=== PATIENT | female | born 1985 | race Caucasian/White ===

== ENCOUNTER 2019-06-15 20:01 | Emergency (ER) | payer OTHER ==
--- NOTE | 2019-06-15 20:11 | ER Document Report ---
ED Medical Screen (RME) - General Chief Complaint: Chest Pain Stated Complaint: RAPID HEART BEAT Time Seen by Provider: 06/15/19 20:09 Primary Care Provider: IVETH LARES [Primary Care Provider] - Follow up as needed Information source: Patient Cannot obtain history due to: Other - This is a 34-year-old female presented to the emergency room today stating that she had palpitations ongoing for about 2 days. She has had this 3 or 4 times in the past was evaluated and had always resolved by the time she got to the emergency room was not visible on EKG. She does have a familial history of atrial tachycardia as well as proximal atrial fibrillation onset between 31 and 36 in her her parent. Physical Exam - Cardiovascular Rhythm: Regular Heart sounds: Normal auscultation Murmur: No Doctor's Discharge - Discharge Referrals: IVETH LARES [Primary Care Provider] - Follow up as needed
[2019-06-15 20:40] LABS: ABSOLUTE BASOPHILS # (AUTO) 0.1 10^3/uL (0.0-0.2); ABSOLUTE LYMPHOCYTES (AUTO) 3.2 10^3/uL (0.5-4.7); ABSOLUTE MONOCYTES (AUTO) 0.5 10^3/uL (0.1-1.4); ABSOLUTE NEUT (AUTO) 7.8 10^3/uL (1.7-8.2); BASOPHILS % (AUTO) 0.5 % (0-2); EOSINOPHILS % (AUTO) 0.3 % (0-6); HEMATOCRIT 39.7 % (36.0-47.0); HEMOGLOBIN 14.5 g/dL (12.0-15.5); LYMPHOCYTES % (AUTO) 27.2 % (13-45); MEAN CORPUSCULAR HEMOGLOBIN 32.9 pg (27.0-33.4); MEAN CORPUSCULAR HGB CONC 36.5 g/dL (32.0-36.0); MEAN CORPUSCULAR VOLUME 90 fl (80-97); MONOCYTES % (AUTO) 4.4 % (3-13); PLATELET COUNT 284 10^3/uL (150-450); RED BLOOD COUNT 4.41 10^6/uL (3.72-5.28); RED CELL DISTRIBUTION WIDTH 12.9 % (11.5-14.0); SEGMENTED NEUTROPHILS % (AUTO) 67.6 % (42-78); TOTAL CELLS COUNTED % (AUTO) 100 %; WHITE BLOOD COUNT 11.6 10^3/uL (4.0-10.5)
--- NOTE | 2019-06-15 20:51 | RADIOLOGY REPORT (SQ) ---
EXAM DESCRIPTION: PA and lateral radiographs of the chest. CLINICAL HISTORY: 34 years Female, pain COMPARISON: None. FINDINGS: Lungs: Lungs are clear. No pneumonia or edema. No pneumothorax or pleural effusion. Mediastinum: Cardiac and mediastinal silhouette are normal. Bones: Osseous structures are normal. IMPRESSION: Unremarkable radiographs of the chest
[2019-06-15 20:54] LABS: ALBUMIN 4.5 g/dL (3.5-5.0); ALKALINE PHOSPHATASE 100 U/L (38-126); ANION GAP 11 (5-19); ASPARTATE AMINO TRANSFERASE 32 U/L (14-36); BILIRUBIN,DIRECT 0.3 mg/dL (0.0-0.4); BILIRUBIN,TOTAL 0.4 mg/dL (0.2-1.3); BLOOD UREA NITROGEN 21 mg/dL (7-20); CALCIUM 9.5 mg/dL (8.4-10.2); CARBON DIOXIDE 26 mmol/L (22-30); CHLORIDE 103 mmol/L (98-107); CREATINE KINASE 161 U/L (30-135); GLUCOSE 86 mg/dL (75-110); POTASSIUM 3.8 mmol/L (3.6-5.0); TOTAL PROTEIN 7.8 g/dL (6.3-8.2)
[2019-06-15 21:06] LABS: CREATINE KINASE MB 1.68 ng/mL (<4.55); TROPONIN I 0.025 ng/mL
[2019-06-15] MEDS ORDERED: NORMAL SALINE 1000 ML 1,000 ML IV ONE (21:06)
[2019-06-15 21:21] LABS: INTERNATIONAL RATION (INR) 0.98
--- NOTE | 2019-06-15 21:50 | ER Document Report ---
ED Cardiac - General Chief Complaint: Palpitations Stated Complaint: RAPID HEART BEAT Time Seen by Provider: 06/15/19 20:09 Primary Care Provider: DARLENE GARCIA MD [ACTIVE STAFF] - Follow up as needed HE[facility],EMPLOYEE [ACTIVE STAFF] - Follow up as needed ED PISANO MD [ACTIVE STAFF] - Follow up as needed Mode of Arrival: Ambulatory Information source: Patient Notes: Patient states that she has had palpitations over the past 2 days. Patient states that she will feel as though she has a fluttering in her chest and then she will cough and the fluttering goes away. Patient states that the whole episode lasted just a few seconds and then is gone. Patient states that she has had over 15 episodes today. Patient denies any cough or cold symptoms otherw ise. Patient states when she has a fluttering she gets a mild shortness of breath but that resolves as soon as she coughs. 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 Patient denies any known history of DVT or PE. Patient denies any recent long distance travel. Patient is non-smoker. - HPI Patient complains to provider of: Palpitations, Shortness of breath Quality of pain: None Cardiac risk factors: denies: Diabetes, Hypertension, Smoker, Hx MD Associated symptoms: Shortness of breath. 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 denies: Fever EENT: No symptoms reported Cardiovascular: Palpitations. denies: Chest pain Respiratory: Short of breath. denies: Cough Gastrointestinal: No symptoms reported. denies: Nausea, Vomiting Genitourinary: No symptoms reported Female Genitourinary: No symptoms reported Musculoskeletal: No symptoms reported. denies: Back pain, Leg swelling Skin: No symptoms reported Hematologic/Lymphatic: No symptoms reported Neurological/Psychological: No symptoms reported Physical Exam - Vital signs Vitals: Pulse Ox 99 06/15/19 20:09 - General General appearance: Appears well, Alert In distress: None - HEENT Head: Normocephalic, Atraumatic Eyes: Normal Conjunctiva: Normal Nasal: Normal Mouth/Lips: Normal Neck: Normal, Supple. No: Lymphadenopathy - Respiratory Respiratory status: No respiratory distress Chest status: Nontender Breath sounds: Normal Chest palpation: Normal - Cardiovascular Rhythm: Regular. No: Tachycardia Heart sounds: S1 appreciated, S2 appreciated - Abdominal Inspection: Normal Tenderness: Nontender - Back Back: Normal, Nontender - Extremities General upper extremity: Normal inspection, Normal ROM General lower extremity: Normal inspection, Normal ROM - Neurological Neuro grossly intact: Yes Cognition: Normal Mark Coma Scale Eye Opening: Spontaneous Mark Coma Scale Verbal: Oriented Mark Coma Scale Motor: Obeys Commands [place] Coma Scale Total: 15 - Psychological Associated symptoms: Normal affect, Normal mood - Skin Skin Temperature: Warm Skin Moisture: Dry Skin Color: Normal Course - Re-evaluation Re-evalutation: 06/15/19 23:[address] Roger regarding patient presentation and diagnostic evaluation. Recommends adding on magnesium. 06/15/19 23:58 Presentation of chest palpitations in an otherwise well appearing patient. Low clinical suspicion for ACS given clinical history, exam, EKG without ST el evations or depressions, and negative initial troponin. HEART score less than or equal to 3. PE also seems unlikely given clinical history, absence of tachycardia and negative d dimer. CXR without evidence of pneumothorax or pneumonia. No widened mediastinum. Chest with palpitations in a patient without evidence of cardiac or other serious etiology on workup today. I discussed with patient that, based on their age, risk factors and emergency department testing today, the likelihood that their symptoms are related to a heart attack is very low. The patient demonstrates decision making capacity and has verbalized an understanding of these risks to me. Based on this, the patient has chosen to follow-up as an outpatient. Usual chest pain return precautions reviewed. The patient states un derstanding and agreement with this plan. 06/15/19 23:59 - Vital Signs Vital signs: Temp Pulse Resp BP Pulse Ox 98.8 F 108 H 21 H 140/84 H 100 06/15/19 20:10 06/15/19 20:10 06/16/19 00:01 06/16/19 00:01 06/16/19 00:01 - Laboratory Result Diagrams: 06/15/19 20:30 06/15/19 20:30 Laboratory results interpreted by me: 06/15/19 06/15/19 20:30 20:30 WBC 11.6 H MCHC 36.5 H BUN 21 H Creatine Kinase 161 H - Diagnostic Test Radiology reviewed: Reports reviewed - EKG Interpretation by Me EKG shows normal: Sinus rhythm Rate: Normal Additional EKG results interpreted by me: 06/15/19 23:[address] elevation, QTc 424 Discharge - Discharge Clinical Impression: Palpitations Condition: Stable Disposition: HOME, SELF-CARE Instructions: Palpitations (Irregular or Rapid Heartrate) (OM) Additional Instructions: Return immediately for any new or worsening symptoms Followup with your primary care provider, call tomorrow to make a followup appointment Follow-up with casting operator helper for further evaluation and placement of an event recorder Referrals: HEALTH,EMPLOYEE [ACTIVE STAFF] - Follow up as needed ED PISANO MD [ACTIVE STAFF] - Follow up as needed DARLENE GARCIA MD [ACTIVE STAFF] - Follow up as needed
[2019-06-15 22:17] LABS: FREE T3 3.71 pg/mL (2.77-5.27); FREE T4 (FREE THYROXINE) 1.06 ng/dL (0.78-2.19)
[2019-06-15 22:31] LABS: THYROID STIMULATING HORMONE 3.23 uIU/mL (0.47-4.68)
[2019-06-16 00:07] VITALS: BP 140/84
--- NOTE | 2019-06-16 13:56 | EKG REPORT ---
SEVERITY:- NORMAL ECG - SINUS RHYTHM : Confirmed by: Myranda Real MD 16-Jun-2019 13:54:56
== END 2019-06-16 00:07 | disposition home or self-care (01) ==
LOC: ER 20:01
DX: R00.2 Palpitations (principal); R06.02 Shortness of breath; Z86.73 Personal history of transient ischemic attack (TIA), and cerebral infarction without residual deficits
CPT/HCPCS: 93005; 99285; 36415; 84439; 82553; 82550; 83735; 84443; 85025; 85610; 80053; 84484; 84481; 85379; 71046; 93010; J7030

== ENCOUNTER 2019-06-22 23:27 | Emergency (ER) | payer OTHER ==
--- NOTE | 2019-06-23 00:49 | ER Document Report ---
ED Cardiac - General Chief Complaint: Palpitations Stated Complaint: HEART PALPITATIONS WITH CHEST PAIN Time Seen by Provider: 06/23/19 00:32 Primary Care Provider: LYNDON MCCABE MD [ACTIVE PROVISIONAL STAFF] - 06/25/19 Notes: Patient is a 34-year-old female that comes emergency department for chief complaint of an episode at 4 PM where she felt like her heart was racing, she states she used her inhaler and this seemed to resolve, she states that again at 5 PM she started feeling like her heart was racing again, she felt some discomfort of the left side of her chest" up towards the jaw", she states this did resolve but she has felt episodes of palpitations several times since that time. She denies dizziness, passing out, nausea, vomiting, abdominal pain, fever, cough, shortness of breath, or any other complaints. She states she is supposed to be seen by cardiology but has not been able to get in because of unavailability for appointments. She has a history of asthma, anticardiolipin syndrome on aspirin (when she travels she is on heparin), she states that before this was diagnosed she had 3 TIAs. She has not had a pulmonary embolism or DVT. She also has a history of depression/anxiety and panic attacks. She states she did drink a little bit of alcohol earlier to help calm down to see if it would help. She denies recreational drugs or smoking. She has had a hysterectomy. - Related Data Allergies/Adverse Reactions: No Known Allergies Allergy (Unverified 06/15/19 20:13) Home Medications: penicillin for poss tooth problem Past Medical History - General Information source: Patient - Social History Smoking Status: Never Smoker Frequency of alcohol use: None Drug Abuse: None Lives with: Family Family History: Reviewed & Not Pertinent Patient has suicidal ideation: No Patient has homicidal ideation: No Pulmonary Medical History: Reports: Hx Asthma Psychiatric Medical History: Reports: Hx Depression Past Surgical History: Reports: Hx Gynecologic Surgery, Hx Hysterectomy, Hx Oral Surgery - Immunizations Hx Diphtheria, Pertussis, Tetanus Vaccination: Yes Review of Systems - Review of Systems Constitutional: See HPI EENT: No symptoms reported Cardiovascular: See HPI Respiratory: See HPI Gastrointestinal: No symptoms reported Genitourinary: No symptoms reported Female Genitourinary: No symptoms reported Musculoskeletal: No symptoms reported Skin: No symptoms reported Hematologic/Lymphatic: No symptoms reported Neurological/Psychological: See HPI Physical Exam - Vital signs Vitals: Temp Pulse Resp BP Pulse Ox 98.4 F 79 16 126/87 H 100 06/22/19 23:35 06/22/19 23:35 06/22/19 23:35 06/22/19 23:35 06/22/19 23:35 - Notes Notes: GENERAL: Alert, interacts well. No acute distress. HEAD: Normocephalic, atraumatic. EYES: Pupils equal, round, and reactive to light. Extraocular movements intact. ENT: Oral mucosa moist, tongue midline. Oropharynx unremarkable. Airway patent. Nares patent, no nasal septal hematoma, TM's intact. NECK: Full range of motion. Supple. Trachea midline. LUNGS: Clear to auscultation bilaterally, no wheezes, rales, or rhonchi. No respiratory distress. HEART: Regular rate and rhythm. No murmur ABDOMEN: Soft, non-tender. Non-distended. Bowel sounds present in all 4 quadrants. GENITOURINARY: Deferred EXTREMITIES: Moves all 4 extremities spontaneously. No edema, normal radial and dorsalis pedis pulses bilaterally. No cyanosis. BACK: no cervical, thoracic, lumbar midline tenderness. No saddle anesthesia, normal distal neurovascular exam. Moves all extremities in full range of motion. NEUROLOGICAL: Alert and oriented x3. Normal speech. Cranial nerves II through XII grossly intact. PSYCH: Normal affect, normal mood. SKIN: Warm, dry, normal turgor. No rashes or lesions noted. Course - Re-evaluation Re-evalutation: Patient is alert, well-appearing, asymptomatic on my exam. Unremarkable on monitoring. EKG is normal. Chest x-ray unremarkable. CBC, chemistry, remaining work-up unremarkable. 2 negative troponins performed. She had a negative thyroid screen last week at this facility. I discussed with patient. Patient is very satisfied with this, however she states she is frustrated because she has not been able to get into cardiology yet. I called and spoke with Dr. Mccabe after discussing with patient, he states that he will see her on Tuesday and asks for her contact information. Patient approved this, I provided this to him, patient will be seen on Tuesday and will be contacted by his office. Patient is very appreciative of this, states she will return for any concerning symptoms, this was discussed with patient in detail. Stable and well-appearing at time of discharge with no symptoms. - Vital Signs Vital signs: Temp Pulse Resp BP Pulse Ox 98.4 F 79 17 115/70 97 06/22/19 23:35 06/22/19 23:35 06/23/19 05:29 06/23/19 05:29 06/23/19 05:29 - Laboratory Result Diagrams: 06/23/19 00:50 06/23/19 00:50 Laboratory results interpreted by me: 06/23/19 06/23/19 00:50 00:50 WBC 10.9 H Creatine Kinase 199 H - EKG Interpretation by Me Additional EKG results interpreted by me: EKG shows sinus rhythm at a rate of 83, QTc 428, normal axis, no T wave inversions or ST segment changes in consecutive leads Discharge - Discharge Clinical Impression: Palpitations Condition: Stable Disposition: HOME, SELF-CARE Additional Instructions: Your work-up tonight is reassuring. Please follow-up with the cardiology referral listed. I spoke with Dr. Mccabe, he has been provided with your information, you will be contacted on Tuesday to be brought into the office for the monitoring to be placed and performed. Return if you worsen including passing out, developing pain, difficulty breathing, vomiting, fever, or any other concerning symptoms. Referrals: LYNDON MCCABE MD [ACTIVE PROVISIONAL STAFF] - 06/25/19
[2019-06-23 01:18] LABS: ABSOLUTE BASOPHILS # (AUTO) 0.1 10^3/uL (0.0-0.2); ABSOLUTE LYMPHOCYTES (AUTO) 2.7 10^3/uL (0.5-4.7); ABSOLUTE MONOCYTES (AUTO) 0.4 10^3/uL (0.1-1.4); ABSOLUTE NEUT (AUTO) 7.8 10^3/uL (1.7-8.2); BASOPHILS % (AUTO) 0.5 % (0-2); EOSINOPHILS % (AUTO) 0.2 % (0-6); HEMATOCRIT 41.2 % (36.0-47.0); HEMOGLOBIN 14.8 g/dL (12.0-15.5); LYMPHOCYTES % (AUTO) 24.4 % (13-45); MEAN CORPUSCULAR HGB CONC 35.8 g/dL (32.0-36.0); MEAN CORPUSCULAR VOLUME 92 fl (80-97); MONOCYTES % (AUTO) 3.9 % (3-13); PLATELET COUNT 340 10^3/uL (150-450); RED BLOOD COUNT 4.47 10^6/uL (3.72-5.28); RED CELL DISTRIBUTION WIDTH 12.9 % (11.5-14.0); TOTAL CELLS COUNTED % (AUTO) 100 %; WHITE BLOOD COUNT 10.9 10^3/uL (4.0-10.5)
--- NOTE | 2019-06-23 01:27 | RADIOLOGY REPORT (SQ) ---
EXAM DESCRIPTION: XR CHEST 1 VIEW COMPLETED DATE/TME: 06/23/2019 00:16 CLINICAL HISTORY: 34 years Female, palpitations COMPARISON:Jun 15 2019 NUMBER OF VIEWS/TECHNIQUE: 1/AP FINDINGS: Adequate lung volume, clear parenchyma, normal cardiac silhouette, and intact bony thorax. IMPRESSION: No acute cardiopulmonary findings.
[2019-06-23 01:29] LABS: ALBUMIN 4.8 g/dL (3.5-5.0); ALKALINE PHOSPHATASE 110 U/L (38-126); ANION GAP 7 (5-19); ASPARTATE AMINO TRANSFERASE 32 U/L (14-36); BILIRUBIN,TOTAL 0.6 mg/dL (0.2-1.3); BLOOD UREA NITROGEN 14 mg/dL (7-20); CALCIUM 9.8 mg/dL (8.4-10.2); CARBON DIOXIDE 26 mmol/L (22-30); CHLORIDE 105 mmol/L (98-107); CREATINE KINASE 199 U/L (30-135); GLUCOSE 99 mg/dL (75-110); POTASSIUM 4.2 mmol/L (3.6-5.0)
[2019-06-23 01:30] LABS: ALCOHOL < 10 mg/dL (NONE DETECTED)
[2019-06-23 05:34] VITALS: BP 115/70
--- NOTE | 2019-06-23 10:08 | EKG REPORT ---
SEVERITY:- NORMAL ECG - SINUS RHYTHM : Confirmed by: Jomar Blankenship MD 23-Jun-2019 10:07:14
== END 2019-06-23 05:39 | disposition home or self-care (01) ==
LOC: ER 23:27
DX: R00.2 Palpitations (principal); R07.9 Chest pain, unspecified; R68.84 Jaw pain; J45.909 Unspecified asthma, uncomplicated; F32.9 Major depressive disorder, single episode, unspecified; F41.9 Anxiety disorder, unspecified
CPT/HCPCS: 36415; 71045; 80053; 80307; 82550; 83735; 84484; 85025; 85379; 93005; 93010; 99285

== ENCOUNTER 2019-07-08 19:39 | Emergency (ER) | payer OTHER ==
--- NOTE | 2019-07-08 20:05 | ER Document Report ---
ED Medical Screen (RME) - General Stated Complaint: RIGHT BODY NUMBNESS Time Seen by Provider: 07/08/19 20:01 Primary Care Provider: QUINN HIGUERA PA [Primary Care Provider] - Follow up as needed Notes: HPI: 34-year-old female with history of TIA x3 presenting for numbness and tingling with heaviness to the right side of the body that began around 2 PM yesterday. Started in the foot and leg with heaviness and weakness with pins and needle sensation then progressed to the arm, face. Patient complains of some blurred vision of the right eye. Patient complains of some tingling to the right side of her tongue. No slurred speech. Patient does feel like she is somewhat off balance and having some difficulty with walking. Patient states this feels similar to her last TIA which was in 2013. States she had a headache last night but not at onset of her symptoms headache is currently resolved no chest pain shortness of breath I have greeted and performed a rapid initial assessment of this patient. A comprehensive ED assessment and evaluation of the patient, analysis of test results and completion of the medical decision making process will be conducted by additional ED providers PHYSICAL EXAMINATION: Dining Room Host are equal 5/5 bilateral upper extremities. Strength equal 5/5 bilateral lower extremities. Some subjective numbness tingling on the right side upper and lower relative to the left. Speech is not slurred. No visible facial droop. Lung sounds are clear to auscultation regular rate and rhythm. No nystagmus I have greeted and performed a rapid initial assessment of this patient. A comprehensive ED assessment and evaluation of the patient, analysis of test results and completion of medical decision making process will be conducted by an additional ED providers. - Related Data Allergies/Adverse Reactions: No Known Allergies Allergy (Unverified 06/15/19 20:13) Past Medical History Pulmonary Medical History: Reports: Hx Asthma Psychiatric Medical History: Reports: Hx Depression Past Surgical History: Reports: Hx Gynecologic Surgery, Hx Hysterectomy, Hx Oral Surgery - Immunizations Hx Diphtheria, Pertussis, Tetanus Vaccination: Yes Physical Exam - Vital signs Vitals: Temp Pulse Resp BP Pulse Ox 98.9 F 90 16 133/80 H 97 07/08/19 19:43 07/08/19 19:43 07/08/19 19:43 07/08/19 19:43 07/08/19 19:43 Course - Vital Signs Vital signs: Temp Pulse Resp BP Pulse Ox 98.9 F 90 16 133/80 H 97 07/08/19 19:43 07/08/19 19:43 07/08/19 19:43 07/08/19 19:43 07/08/19 19:43 Doctor's Discharge - Discharge Referrals: QUINN HIGUERA PA [Primary Care Provider] - Follow up as needed
--- NOTE | 2019-07-08 20:29 | RADIOLOGY REPORT (SQ) ---
INDICATION: right weakness. COMPARISON: None CORRELATION: None TECHNIQUE: Noncontrast spiral axial CT images were obtained from the skull base to vertex. This exam was performed according to our departmental dose-optimization program, which includes automated exposure control, adjustment of the mA and/or kV according to patient size and/or use of iterative reconstruction techniques. FINDINGS: There is no evidence of acute intracranial hemorrhage, midline shift, mass effect or mass lesion. Cote-white differentiation is normal. There is no evidence of acute large territory infarct. Ventricles and extracerebral spaces are within normal limits, for age. The visualized paranasal sinuses are grossly clear. The orbits and eyeballs are unremarkable. The mastoid air cells are clear. Skull base and calvarium appear intact. IMPRESSION: No acute intracranial process is identified.
--- NOTE | 2019-07-08 20:31 | RADIOLOGY REPORT (SQ) ---
CLINICAL INDICATION: right weakness. TECHNIQUE: A single portable AP view was obtained of the chest at 2033 hours. COMPARISON: None. FINDINGS: The cardiomediastinal silhouette is normal. The lungs are grossly clear. No evidence of effusion or pneumothorax. The visualized bones are unremarkable. IMPRESSION: No evidence of active intrathoracic disease.
[2019-07-08 20:49] LABS: ABSOLUTE EOSINOPHILS # (AUTO) 0.1 10^3/uL (0.0-0.6); ABSOLUTE LYMPHOCYTES (AUTO) 3.6 10^3/uL (0.5-4.7); ABSOLUTE MONOCYTES (AUTO) 0.5 10^3/uL (0.1-1.4); ABSOLUTE NEUT (AUTO) 6.6 10^3/uL (1.7-8.2); BASOPHILS % (AUTO) 0.4 % (0-2); EOSINOPHILS % (AUTO) 0.9 % (0-6); HEMOGLOBIN 15.2 g/dL (12.0-15.5); LYMPHOCYTES % (AUTO) 33.1 % (13-45); MEAN CORPUSCULAR HEMOGLOBIN 32.3 pg (27.0-33.4); MEAN CORPUSCULAR HGB CONC 35.3 g/dL (32.0-36.0); MEAN CORPUSCULAR VOLUME 92 fl (80-97); PLATELET COUNT 311 10^3/uL (150-450); SEGMENTED NEUTROPHILS % (AUTO) 60.6 % (42-78); TOTAL CELLS COUNTED % (AUTO) 100 %; WHITE BLOOD COUNT 10.9 10^3/uL (4.0-10.5)
[2019-07-08 21:07] LABS: ALBUMIN 4.5 g/dL (3.5-5.0); ALKALINE PHOSPHATASE 124 U/L (38-126); ANION GAP 6 (5-19); ASPARTATE AMINO TRANSFERASE 28 U/L (14-36); BILIRUBIN,DIRECT 0.2 mg/dL (0.0-0.4); BILIRUBIN,TOTAL 0.4 mg/dL (0.2-1.3); BLOOD UREA NITROGEN 17 mg/dL (7-20); CALCIUM 9.5 mg/dL (8.4-10.2); CARBON DIOXIDE 26 mmol/L (22-30); CHLORIDE 106 mmol/L (98-107); CREATINE KINASE 138 U/L (30-135); GLUCOSE 86 mg/dL (75-110); INTERNATIONAL RATION (INR) 0.99; PARTIAL THROMBOPLASTIN TIME 30.7 SEC (23.5-35.8); PROTHROMBIN TIME 13.1 SEC (11.4-15.4); TOTAL PROTEIN 7.6 g/dL (6.3-8.2)
[2019-07-08 21:18] LABS: CREATINE KINASE MB 1.48 ng/mL (<4.55)
[2019-07-08 21:24] LABS: TROPONIN I < 0.012 ng/mL
--- NOTE | 2019-07-08 22:31 | EKG REPORT ---
SEVERITY:- BORDERLINE ECG - SINUS RHYTHM BORDERLINE T ABNORMALITIES, ANTERIOR LEADS : Confirmed by: Myranda Real MD 08-Jul-2019 22:30:13
[2019-07-08 23:20] VITALS: BP 118/83
--- NOTE | 2019-07-09 06:00 | ER Document Report ---
Entered by BRADY TAY SCRIBE 07/08/19 2236 Acting as scribe for:DEANDRA INMAN IV, MD ED General - General Chief Complaint: Numbness Stated Complaint: RIGHT BODY NUMBNESS Time Seen by Provider: 07/08/19 20:01 Primary Care Provider: QUINN HIGUERA PA [Primary Care Provider] - Follow up as needed DEREK BATISTA MD [NO [facility] MD] - 07/09/19 (call tomorrow to arrange a follow- up appointment) Mode of Arrival: Wheelchair Information source: Patient Notes: This 34 year old female patient with a history of x3 TIAs presents to the ED today with complaints of numbness and tingling to the right side of the body that began around 1400 yesterday. Patient states that the numbness/tingling is mostly in the RLE from the knee down and that there is minimal tingling to the face, hand, and tongue. She describes it as decreased sensation. She notes that she sometimes has "random" numbness to her toes when they are ice cold. Denies slurred speech. She states that this feels similar to her last TIA which occurred in 2013. She reports that she was last seen by a neurologist in [place] x6 years ago. She denies history of MS or Reynaud's syndrome, stating that she has never been tested. She also denies being seen by a supply chain tech. - Related Data Allergies/Adverse Reactions: No Known Allergies Allergy (Unverified 06/15/19 20:13) Past Medical History - General Information source: Patient - Social History Smoking Status: Never Smoker Chew tobacco use (# tins/day): No Frequency of alcohol use: Occasional Drug Abuse: None Family History: Reviewed & Not Pertinent Patient has suicidal ideation: No Patient has homicidal ideation: No Pulmonary Medical History: Reports: Hx Asthma Psychiatric Medical History: Reports: Hx Depression Past Surgical History: Reports: Hx Gynecologic Surgery, Hx Hysterectomy, Hx Oral Surgery - Immunizations Hx Diphtheria, Pertussis, Tetanus Vaccination: Yes Review of Systems - Review of Systems Constitutional: No symptoms reported EENT: See HPI, Other - Tongue numbness Cardiovascular: No symptoms reported Respiratory: No symptoms reported Gastrointestinal: No symptoms reported Genitourinary: No symptoms reported Female Genitourinary: No symptoms reported Musculoskeletal: No symptoms reported Skin: No symptoms reported Hematologic/Lymphatic: No symptoms reported Neurological/Psychological: See HPI, Numbness, Tingling. denies: Speech impairment -: Yes All other systems reviewed and negative Physical Exam - Vital signs Vitals: Temp Pulse Resp BP Pulse Ox 98.9 F 90 16 133/80 H 97 07/08/19 19:43 07/08/19 19:43 07/08/19 19:43 07/08/19 19:43 07/08/19 19:43 - General General appearance: Appears well, Alert In distress: None - HEENT Head: Normocephalic, Atraumatic Eyes: Normal Pupils: PERRL - Respiratory Respiratory status: No respiratory distress Chest status: Nontender Breath sounds: Normal Chest palpation: Normal - Cardiovascular Rhythm: Regular Heart sounds: Normal auscultation Murmur: No Friction rub: No Gallop: None auscultated - Abdominal Inspection: Normal Distension: No distension Bowel sounds: Normal Tenderness: Nontender - Abdomen soft Organomegaly: No organomegaly - Back Back: Normal, Nontender - Extremities General upper extremity: Normal inspection - Neurological Neuro grossly intact: Yes Speech: Normal Notes: Decreased sensation to right lateral lower leg from ankle to just above knee - Psychological Associated symptoms: Normal affect, Normal mood - Skin Skin Temperature: Warm Skin Moisture: Dry Skin Color: Normal Course - Re-evaluation Re-evalutation: 07/08/19 22:56 Results of ED MSE discussed with patient. All questions were answered prior to discharge. Patient was strongly encouraged to establish contact with the neurologist she is going to be referred to. Emergency signs and symptoms, reasons to return to the emergency department discussed with patient. - Vital Signs Vital signs: Temp Pulse Resp BP Pulse Ox 98.9 F 75 18 118/83 98 07/08/19 19:43 07/08/19 21:47 07/08/19 23:01 07/08/19 23:00 07/08/19 23:01 - Laboratory Result Diagrams: 07/08/19 20:31 07/08/19 20:31 Laboratory results interpreted by me: 07/08/19 07/08/19 20:31 20:31 WBC 10.9 H Creatine Kinase 138 H - EKG Interpretation by Me Additional EKG results interpreted by me: 07/08/19 22:58 EKG obtained on 07/08/2019 at 2023 hours was interpreted by this MD. Findings: Normal sinus rhythm, rate 79, normal axis, P waves proceed QRS complexes, QRS complexes appear narrow, there are no obvious patterns of ST segment elevation or depression present to suggest acute myocardial ischemia or infarction. Impression normal sinus rhythm with nonspecific ST segments. Discharge - Discharge Clinical Impression: Numbness and tingling Condition: Good Disposition: HOME, SELF-CARE Additional Instructions: Numbness or Paresthesia Definition: Numbness and tingling are decreased or abnormal sensations caused by altered sensory nerve function. Description: The feeling of having a foot "fall asleep" is a familiar one. This same combination of numbness and tingling can occur in any region of the body and may be caused by a wide variety of disorders. Sensations such as these, which occur without any associated stimulus, are called paresthesias. Other types of paresthesias include feelings of cold, warmth, burning, itching, and skin crawling. Causes: Sensation is carried to the brain by neurons (nerve cells) running from the outer parts of the body to the spinal cord in bundles called nerves. In the spinal cord, these neurons make connections with other neurons that run up to the brain. Paresthesias are caused by disturbances in the function of neurons in the sensory pathway. This disturbance can occur in the central nervous system (the brain and spinal cord), the nerve roots that are attached to the spinal cord, or the peripheral nervous system (nerves outside the brain and spinal cor d). Peripheral disturbances are the most common cause of paresthesias. "Falling asleep" occurs when the blood supply to a nerve is cut off-a condition called ischemia. Ischemia usually occurs when an artery is compressed as it passes through a tightly flexed joint. Sleeping with the arms above the head or sitting with the legs tightly crossed frequently cause numbness and tingling. Direct compression of the nerve also causes paresthesias. Compression can be short-lived, as when a heavy backpack compresses the nerves passing across the shoulders. Compression may also be chronic. Chronic nerve compression occurs in entrapment syndromes. The most common example is carpal tunnel syndrome. Carpal tunnel syndrome occurs when the median nerve is compressed as it passes through a narrow channel in the wrist. Repetitive motion or prolonged vibration can cause the lining of the channel to swell and press on the nerve. Chronic nerve root compression, or radiculopathy, can occur in disk disease or spinal arthritis. Other causes of paresthesias related to disorders of the peripheral nerves include: * Metabolic or nutritional disturbances. These disturbances include diabetes, hypothyroidism (a condition caused by too little activity of the thyroid gland), alcoholism, malnutrition, and vitamin B12 deficiency. Trauma. Trauma includes injuries that crush, sever, or pull on nerves. * Inflammation. * Connective tissue disease. These diseases include arthritis, systemic lupus erythematosus (a chronic inflammatory disease that affects many systems of the body, including the nervous system), polyarteritis nodosa (a vascular disease that causes widespread inflammation and ischemia of small and medium-size arteries), and Sj&ouml;gren's syndrome (a disorder marked by insufficient moisture in the tear ducts, salivary glands, and other glands). * Toxins. Toxins include heavy metals (metallic elements such as arsenic, lead, and mercury which can, in large amounts, cause poisoning), certain antibiotics and chemotherapy agents, solvents, and overdose of pyridoxine (vitamin B6). * Malignancy. * Infections. Infections include Lyme disease, human immunodeficiency virus (HIV), and leprosy. * Hereditary disease. These diseases include Bollsql-Epaug-Zbvqz disease (a hereditary disorder that causes wasting of the leg muscles, resulting in malformation of the foot), porphyria (a group of inherited disorders in which there is abnormally increased production of substances called porphyrins), and Job-Brown's syndrome (a hereditary disorder of the nerve root). Paresthesias can also be caused by central nervous system disturbances, including stroke, TIA (transient ischemic attack), tumor, trauma, multiple sclerosis, or infection. Symptoms: Sensory nerves supply or innervate particular regions of the body. Determining the distribution of symptoms is an important way to identify the nerves involved. For instance, the median nerve innervates the thumb, the first two fingers, half of the ring finger, and the part of the hand to which they connect. The ulnar nerve innervates the other half of the ring finger, the little finger, and the remainder of the hand. Distribution of symptoms may also aid diagnosis of the underlying disease. Diabetes usually causes a symmetrical "glove and stocking" distribution in the hands and feet. Multiple sclerosis may cause symptoms in several, widely areas. Other symptoms may accompany paresthesias, depending on the type and severity of the nerve disturbance. For instance, weakness may accompany damage to nerves that carry both sensory and motor neurons. (Motor neurons are those that carry messages outward from the brain.) Diagnosis: A careful history of the patient is needed for a diagnosis of paresthesias. The medical history should focus on the onset, duration, and location of symptoms. The history may also reveal current related medical problems and recent or past exposure to drugs, toxins, infection, or trauma. The family medical history may suggest a familial disorder. A work history may reveal repetitive motion, chronic vibration, or industrial chemical exposure. The physical and neurological examination tests for distribution of symptoms and alterations in reflexes, sensation, or strength. The distribution of symptoms may be mapped by successive stimulation over the affected area of the body. Lab tests for paresthesia may include blood tests and urinalysis to detect metabolic or nutritional abnormalities. Other tests are used to look for specific suspected causes. Nerve conduction velocity tests, electromyography, an d imaging studies of the affected area may be employed. Nerve biopsy may be indicated in selected cases. Treatment: Treatment of paresthesias depends on the underlying cause. For limbs that have "fallen asleep," restoring circulation by stretching, exercising, or massaging the affected limb can quickly dissipate the numbness and tingling. If the paresthesia is caused by a chronic disease such as diabetes or occurs as a complication of treatments such as chemotherapy, most treatments are aimed at relieving symptoms. Anti-inflammatory drugs such as aspirin or ibuprofen are recommended if symptoms are mild. In more difficult cases, antidepressant drugs such as amitriptyline (Elavil) are sometimes prescribed. These drugs are given at a much lower dosage for this purpose than for relief of depression. They are thought to help because they alter the body's perception of pain. In severe cases, opium derivatives such as codeine can be prescribed. Currently trials are being done to determine whether treatment with human nerve growth factor will be effective in regenerating the damaged nerves. Alternative treatment: Several alternative treatments are available to help relieve symptoms of paresthesia. Nutritional therapy includes supplementation with B complex vitamins, especially vitamin B 12 (intramuscular injection of vitamin B12 is most effective). Vitamin supplements should be used cautiously however. Overdose of Vitamin B6 is one of the causes of paresthesias. People experiencing paresthesia should also avoid alcohol. Acupuncture and massage are said to relieve symptoms. Self-massage with aromatic oils is sometimes helpful. The application of topical ointments containing capsaicin, the substance that makes hot peppers hot, provides relief for some. It may also be helpful to wear loosely fitting shoes and clothing. None of these alternatives should be used in place of traditional therapy for the underlying condition. Prognosis: Treating the underlying disorder may reduce the occurrence of paresthesias. Paresthesias resulting from damaged nerves may persist throughout or even beyond the recovery period. The overall prognosis depends on the cause. Prevention: Preventing the underlying disorder may reduce the incidence of paresthesias. For those with frequent paresthesias caused by ischemia, changes in posture may help. Return to the Emergency Department without delay if any worse. HOME CARE INSTRUCTIONS & INFORMATION: Thank you for choosing us for your medical needs. We hope you're satisfied with the care you received. After you l eave, you must properly care for your problem and, at the same time, observe its progress. Any condition can change. Some illnesses can change rapidly over hours or days. If your condition worsens, return to the Emergency Department or see your physician promptly. ABOUT YOUR X-RAYS AND EKG'S: If you had an EKG or X-rays taken, they have been read by the Emergency Physician. The X-rays and EKG's will also be read by a Radiologist or Radio Repairer Domestic within 24 hours. If discrepancies are noted, you will be notified by telephone. Please be certain the ED has a correct telephone number & address where you can be reached. Also, realize that some fractures or abnormalities do not show up on initial X-rays. If your symptoms continue, see your physician. ABOUT YOUR LABORATORY TEST: If you had laboratory tests, the results have been reviewed by the Emergency Physician. Some test results (for example cultures) may not be available for several days. You will be contacted if any test result shows you need additional treatment. Please be certain the ED has a correct telephone number and address where you can be reached. ABOUT YOUR MEDICATIONS: You will receive instructions on how to take your medicine on the prescription label you receive. Additional information may be provided by the Pharmacy. If you have questions afterwards, call the ED for clarification or further instructions. Some prescribed medications may cause drowsiness. Do not perform tasks such as driving a car or operating machinery without consulting your Pharmacist. If you feel you need a refill of pain medication, your condition will need re-evaluation. Please do not call for a refill of any medication. ABOUT YOUR SIGNATURE: Signature of this document acknowledges to followin. Understanding that you received emergency treatment and that you may be released before al medical problems are known or treated. Please be certain the ED has a correct phone number & address where you can be reached. 2. Acknowledgement that you will arrange for follow-up care as recommended. 3. Authorization for the Emergency Physician to provide information to your follow-up Physician in order to maximize your care. AT ANY TIME, IF YOUR SYMPTOMS CHANGE SIGNIFICANTLY OR WORSEN OR YOU DEVELOP NEW SYMPTOMS, RETURN TO THE EMERGENCY DEPARTMENT IMMEDIATELY FOR RE-EVALUATION. OUR GOAL IS TO PROVIDE EXCELLENT MEDICAL CARE! WE HOPE THAT WE HAVE MET YOUR EXPECTATIONS DURING YOUR EMERGENCY DEPARTMENT VISIT AND THAT YOU FEEL YOU HAVE RECEIVED EXCELLENT CARE! Referrals: QUINN HIGUERA PA [Primary Care Provider] - Follow up as needed DREEK BATISTA MD [[facility] ] - 07/09/19 (call tomorrow to arrange a follow- up appointment) I personally performed the services described in the documentation, reviewed and edited the documentation which was dictated to the scribe in my presence, and it accurately records my words and actions.
== END 2019-07-08 23:32 | disposition home or self-care (01) ==
LOC: ER 19:39
DX: R20.0 Anesthesia of skin (principal); R20.2 Paresthesia of skin; Z86.73 Personal history of transient ischemic attack (TIA), and cerebral infarction without residual deficits; J45.909 Unspecified asthma, uncomplicated
CPT/HCPCS: 36415; 70450; 71045; 80053; 82550; 82553; 84484; 84703; 85025; 85610; 85730; 93005; 93010; 99284

== ENCOUNTER → 2019-09-19 | Outpatient (CLI) | payer OTHER ==
--- NOTE | 2019-09-20 16:44 | XCELERA REPORT ---
[address] [address] Transthoracic Echocardiogram Report Name: ALESIA BRADLEY Age: 34 yrs Gender: Female : 1985 Patient Status: Outpatient Patient Location: Study Date: 09/19/2019 12:07 PM Height: 62 in Weight: 183 lb BSA: 1.8 m2 Procedure: A complete two-dimensional transthoracic echocardiogram was performed (2D, M-mode, spectral and color flow Doppler). The study was technically adequate with some images being suboptimal in quality. Reason For Study: TIA Previous Evaluation: No previous studies were available. History: TIA Palpitations. Ordering Physician: DARLENE GARCIA Performed By: Arelis Escamilla Interpretation Summary Left ventricular systolic function is normal. The Ejection Fraction estimate is 55-60% The right ventricle is normal in size and function. There is a trace amount of mitral regurgitation There is no aortic valve stenosis No tricuspid regurgitation. There is no pericardial effusion. There is no Doppler evidence for an interatrial shunt MMode/2D Measurements & Calculations RVDd: 2.0 cm LVIDd: 4.7 cm FS: 32.7 % Ao root diam: 2.4 cm IVSd: 0.82 cm LVIDs: 3.2 cm EDV(Teich): 104.7 ml Ao root area: 4.5 cm2 LVPWd: 0.71 cm ESV(Teich): 40.8 ml EF(Teich): 61.1 % Doppler Measurements & Calculations MV E max janet: MV dec slope: Ao V2 max: LV V1 max P.5 cm/sec 606.2 cm/sec2 150.5 cm/sec 9.1 mmHg MV A max janet: MV dec time: 0.19 secAo max PG: LV V1 max: 81.9 cm/sec 9.1 mmHg 150.8 cm/sec MV E/A: 1.4 PA V2 max: 82.9 cm/sec PA max P.7 mmHg Left Ventricle The left ventricle is normal in size. There is normal left ventricular wall thickness. Left ventricular systolic function is normal. The Ejection Fraction estimate is 55-60%. Doppler measurements suggest normal left ventricular diastolic function. No regional wall motion abnormalities noted. Right Ventricle The right ventricle is normal in size and function. Atria The right atrium is normal. The left atrial size is normal. The interatrial septum is intact with no evidence for an atrial septal defect. There is no Doppler evidence for an interatrial shunt. Mitral Valve The mitral valve is grossly normal. There is a trace amount of mitral regurgitation. Aortic Valve The aortic valve is trileaflet. The aortic valve is normal in structure and function. The aortic valve opens well. There is no aortic valve stenosis. No aortic regurgitation is present. Tricuspid Valve The tricuspid valve is normal in structure and function. No tricuspid regurgitation. Pulmonic Valve The pulmonic valve is normal in structure and function. There is a trace amount of pulmonic regurgitation. Great Vessels The aortic root is normal size. The inferior vena cava appeared normal and decreased > 50% with respiration (RAP 5-10 mmHg). Effusions There is no pericardial effusion. : DARLENE GARCIA Anil
== END ==
LOC: SP 12:47
PROVIDERS: ATTEND Internal Medicine
DX: R00.2 Palpitations (principal); G45.9 Transient cerebral ischemic attack, unspecified
CPT/HCPCS: 93306

== ENCOUNTER 2020-01-26 11:22 | Emergency (ER) | payer OTHER ==
--- NOTE | 2020-01-26 11:30 | ER Document Report ---
ED Medical Screen (RME) - General Chief Complaint: Blurred Vision Stated Complaint: BLURRED VISION/DIZZINESS Time Seen by Provider: 01/26/20 11:26 Primary Care Provider: DARLENE GARCIA MD [Primary Care Provider] - Follow up as needed Notes: HPI: 34-year-old female with history of TIA because she has antiphospholipid syndrome presenting with sudden onset of blurred vision and spots in the left eye with dizziness and lightheadedness. No weakness in the arms or legs no chest pain shortness of breath. No abdominal pain. States this feels like her last TIA. She is on aspirin. Symptoms began around 1030 this morning PHYSICAL EXAMINATION: Limited exam as patient was seen at the front office agent. She is answering all questions appropriately with no slurred speech. She has no weakness in the arms or legs is able to write her name on the hospital documentation. No discernible nystagmus at this time no facial droop I did speak with MIKO Sue regarding code stroke orders I have greeted and performed a rapid initial assessment of this patient. A comprehensive ED assessment and evaluation of the patient, analysis of test results and completion of medical decision making process will be conducted by an additional ED providers. - Related Data Allergies/Adverse Reactions: No Known Allergies Allergy (Unverified 06/15/19 20:13) Past Medical History Pulmonary Medical History: Reports: Hx Asthma Psychiatric Medical History: Reports: Hx Depression Past Surgical History: Reports: Hx Gynecologic Surgery, Hx Hysterectomy, Hx Oral Surgery - Immunizations Hx Diphtheria, Pertussis, Tetanus Vaccination: Yes Doctor's Discharge - Discharge Referrals: DARLENE GARCIA MD [Primary Care Provider] - Follow up as needed
--- NOTE | 2020-01-26 12:32 | RADIOLOGY REPORT (SQ) ---
EXAM DESCRIPTION: CT HEAD WITHOUT IMAGES COMPLETED DATE/TIME: 01/26/2020 12:21 pm REASON FOR STUDY: blurred vision dizziness TIA hx COMPARISON: None. TECHNIQUE: Axial images acquired through the brain without intravenous contrast. Images reviewed wi th bone, brain and subdural windows. Additional sagittal and coronal reconstructions were generated. Images stored on PACS. All CT scanners at this facility use dose modulation, iterative reconstruction, and/or weight based d osing when appropriate to reduce radiation dose to as low as reasonably achievable (ALARA). [facility]: Dose Right [facility]: CareDose [facility]: Dose Right [facility]: Teradose 4D [facility]: Smart [place] [employer] RADIATION DOSE: CT Rad equipment meets quality standard of care and radiation dose reduction techniq ues were employed. CTDIvol: 48.8 mGy. DLP: 860 mGy-cm. mGy. LIMITATIONS: None. FINDINGS: VENTRICLES: Normal size and contour. CEREBRUM: No masses. No hemorrhage. No midline shift. No evidence for acute infarction. Normal gra y/white matter differentiation. No areas of low density in the white matter. CEREBELLUM: No masses. No hemorrhage. No alteration of density. No evidence for acute infarction. EXTRAAXIAL SPACES: No fluid collections. No masses. ORBITS AND GLOBE: No intra- or extraconal masses. Normal contour of globe without masses. CALVARIUM: No fracture. PARANASAL SINUSES: No fluid or mucosal thickening. SOFT TISSUES: No mass or hematoma. OTHER: No other significant finding. IMPRESSION: NORMAL BRAIN CT WITHOUT CONTRAST. EVIDENCE OF ACUTE STROKE: NO. COMMENT: Quality ID # [id number]: Final reports with documentation of one or more dose reduction techniques (e.g., Automated exposure control, adjustment of the mA and/or kV according to patient size, use of iterative reconstruction technique) TECHNICAL DOCUMENTATION: JOB ID: [id number] 2010 [employer]- All Rights Reserved Reading location - IP/workstation name: [email or web address]
--- NOTE | 2020-01-26 12:55 | ER Document Report ---
ED General - General Chief Complaint: Blurred Vision Stated Complaint: BLURRED VISION/DIZZINESS Time Seen by Provider: 01/26/20 11:26 Primary Care Provider: DARLENE GARCIA MD [ACTIVE STAFF] - Follow up as needed Notes: Chief complaint: Headache and visual symptoms History of present illness: 34-year-old female with history of migraine headaches, TIAs and antiphospholipid syndrome dates that she awakened this morning with a bifrontal headache which is about 8/10 intensity. She was extremely nauseated she took some drul-[id number]-xtnlaug medications for this ports the headache is only about 2/10 intensity. Around 10:30 AM she experienced some blurring and then loss of vision in her left eye. She states this is persistent. She denies any motor symptoms or sensory symptoms. She denies any difficulty with speech, swallowing or ability to ambulate. She says her migraine headaches often are associated with nausea but she is never had neurologic symptoms associated with the migraines that she is aware of. Her only current medication is aspirin 81 mg. She has no known allergies. Patient is a non-smoker. She has no history of diabetes. She has no history of hypertension. Family history is positive for strokes. Patient has had a previous hysterectomy. - Related Data Allergies/Adverse Reactions: No Known Allergies Allergy (Unverified 06/15/19 20:13) Past Medical History - General Information source: Patient, [facility] Records - Social History Smoking Status: Never Smoker Frequency of alcohol use: Social Drug Abuse: None Family History: Reviewed & Not Pertinent Pulmonary Medical History: Reports: Hx Asthma Neurological Medical History: Reports: Hx Migraine, Other - TIAs Psychiatric Medical History: Reports: Hx Depression Past Surgical History: Reports: Hx Gynecologic Surgery, Hx Hysterectomy, Hx Oral Surgery - Immunizations Hx Diphtheria, Pertussis, Tetanus Vaccination: Yes Review of Systems - Review of Systems Notes: Constitutional: Negative for fever. HENT: Negative for sore throat. Eyes: As per HPI. Cardiovascular: Negative for chest pain. Respiratory: Negative for shortness of breath. Gastrointestinal: As per HPI. Genitourinary: Negative for dysuria. Musculoskeletal: Negative for back pain. Skin: Negative for rash. Neurological: As per HPI. 10 point ROS negative except as marked above and in HPI. Physical Exam - Vital signs Vitals: Temp Pulse Resp BP Pulse Ox 98.7 F 87 18 126/85 H 98 01/26/20 11:31 01/26/20 11:31 01/26/20 11:31 01/26/20 11:31 01/26/20 11:31 - Notes Notes: GENERAL: Well-developed well-nourished appearing in no acute distress. SKIN: Good turgor no rashes. HEAD: Normocephalic atraumatic. EYES: PERRLA. EOMI. visual wright by confrontation both eyes grossly normal. Conjunctivae and sclerae clear. EARS: CANALS AND TMS CLEAR. NOSE: CLEAR. MOUTH: Moist mucosa. Good dentition. No stridor or edema. No drooling. NECK: Supple. No masses or thyromegaly. No adenopathy. Carotids 2+ without bruits. No JVD. BACK: Symmetrical without tenderness. CHEST: Respirations unlabored. Breath sounds clear and symmetrical. HEART: Regular rhythm. No murmur gallop or rub. ABDOMEN: Soft nontender without masses, organomegaly or rebound. Bowel sounds normally active. No bruits. GENITALIA: Deferred. EXTREMITIES: No edema. No calf tenderness. Cap refill less than 1.5 seconds. Dorsalis pedis and posterior tibial pulses 3+ and symmetrical. NEUROLOGICAL: GCS 15. Alert and oriented x3. Fluent speech. Cranial nerves II through XII intact. Sensorimotor and cerebellar normal. Normal tone. PSYCHIATRIC: Appropriate affect. Course - Re-evaluation Re-evalutation: 01/26/20 12:[address] per radiologist. Further labs pending at this time. Her visual acuity to confrontation is grossly normal both eyes. I been asked the nurse to do a formal visual acuity test for her. I have also requested an MRI of the brain. At this time I would feel her symptoms are most likely either due to complex migraine or TIA. 01/26/20 16:10 Patient's brain MRI reported as normal by radiologist. Her vital signs are normal. All of her labs are unremarkable. Her visual symptoms have totally resolved and her headache has resolved. Retrospectively I think she probably had a complex migraine and with further questioning and finding out that she is having headaches about twice a week. We talked about options for management and I think her best course at this time would be to stay on low-dose aspirin with the addition of a low-dose beta-2 selective beta-justus such as metoprolol. She is already arranged follow-up with a neurologist. Findings, clinical impression and plan of treatment have been discussed with patient/family. Understanding of current findings and recommendations has been acknowledged by them and there is agreement regarding disposition and follow-up. - Vital Signs Vital signs: Temp Pulse Resp BP Pulse Ox 98.7 F 70 20 123/89 H 100 01/26/20 11:31 01/26/20 13:18 01/26/20 15:01 01/26/20 15:00 01/26/20 15:01 - Laboratory Result Diagrams: 01/26/20 12:45 01/26/20 12:45 Laboratory results interpreted by me: 01/26/20 01/26/20 12:45 12:45 [place] % (Auto) 2.7 L Seg Neutrophils % 80.0 H Chloride 108 H - Diagnostic Test Radiology reviewed: Reports reviewed - Per radiologist: Normal noncontrast head CT. - EKG Interpretation by Me Additional EKG results interpreted by me: 01/26/20 12:59 Twelve-lead EKG reviewed by me contemporaneously: 1227 hrs. Indication for study: Stroke alert Rhythm: Normal sinus Rate: 77 Intervals: Normal QRS axis: +[address]/T wave changes: None Comparison with prior tracing: None presented Interpretation: Normal tracing Discharge - Discharge Clinical Impression: Transient visual impairment left eye, Complex migraine, Antiphospholipid syndrome Condition: Stable Disposition: HOME, SELF-CARE Additional Instructions: Migraine Headache The physician feels that your symptoms are due to a migraine attack. Migraines are caused by changes in the blood vessels of the head. Arteries go into spasm, often causing warning symptoms that a headache may begin soon. As the spasm goes away, the vessels dilate and throb, causing the pounding pain of a migraine headache. Migraines often cause nausea and vomiting. The treatment of headaches varies with severity and cause of pain. Not all headaches need pain shots -- in fact, there is evidence that using narcotics for headaches may make them worse in the long run. The physician will determine the therapy that's in your best interest for this particular headache. Medications are available that may prevent migraines, or stop them as they first occur. If one medication is not helpful, try another. If migraines are frequent, be patient -- follow the doctor's recommendations. Call the physician if you are worsening, or if new symptoms arise. You are being started on a low-dose beta-justus. Follow-up with your primary care provider and neurology as directed. Return here as needed for new or worsening symptoms. Prescriptions: Metoprolol Succinate [Toprol Xl 25 mg Tab.sr] 25 mg PO DAILY 30 Days #30 tab.sr.24h Referrals: DARLENE GARCIA MD [ACTIVE STAFF] - Follow up as needed
--- NOTE | 2020-01-26 12:59 | RADIOLOGY REPORT (SQ) ---
EXAM DESCRIPTION: CHEST SINGLE VIEW IMAGES COMPLETED DATE/TIME: 01/26/2020 12:50 pm REASON FOR STUDY: blurred vision dizziness TIA hx COMPARISON: Chest radiograph 07/08/2019 NUMBER OF VIEWS: One view. TECHNIQUE: Single frontal radiographic view of the chest acquired. LIMITATIONS: None. FINDINGS: LUNGS AND PLEURA: No opacities, masses or pneumothorax. No pleural effusion. MEDIASTINUM AND HILAR STRUCTURES: No masses. Contour normal. HEART AND VASCULAR STRUCTURES: Heart normal in size. Normal vasculature. BONES: No acute findings. HARDWARE: None in the chest. OTHER: No other significant finding. IMPRESSION: NO SIGNIFICANT RADIOGRAPHIC FINDING IN THE CHEST. TECHNICAL DOCUMENTATION: JOB ID: [id number] [email or web address]- All Rights Reserved Reading location - IP/workstation name: [email or web address]
[2020-01-26 13:01] LABS: INTERNATIONAL RATION (INR) 0.96
[2020-01-26 13:02] LABS: PARTIAL THROMBOPLASTIN TIME 29.7 SEC (23.5-35.8)
[2020-01-26 13:13] LABS: ABSOLUTE LYMPHOCYTES (AUTO) 1.7 10^3/uL (0.5-4.7); ABSOLUTE MONOCYTES (AUTO) 0.3 10^3/uL (0.1-1.4); ABSOLUTE NEUT (AUTO) 8.1 10^3/uL (1.7-8.2); BASOPHILS % (AUTO) 0.4 % (0-2); EOSINOPHILS % (AUTO) 0.2 % (0-6); HEMATOCRIT 43.4 % (36.0-47.0); LYMPHOCYTES % (AUTO) 16.7 % (13-45); MEAN CORPUSCULAR HEMOGLOBIN 32.2 pg (27.0-33.4); MEAN CORPUSCULAR HGB CONC 34.6 g/dL (32.0-36.0); MEAN CORPUSCULAR VOLUME 93 fl (80-97); MONOCYTES % (AUTO) 2.7 % (3-13); PLATELET COUNT 303 10^3/uL (150-450); RED BLOOD COUNT 4.66 10^6/uL (3.72-5.28); RED CELL DISTRIBUTION WIDTH 12.6 % (11.5-14.0); TOTAL CELLS COUNTED % (AUTO) 100 %; WHITE BLOOD COUNT 10.1 10^3/uL (4.0-10.5)
[2020-01-26 13:25] LABS: ALBUMIN 4.7 g/dL (3.5-5.0); ALKALINE PHOSPHATASE 111 U/L (38-126); ANION GAP 11 (5-19); ASPARTATE AMINO TRANSFERASE 28 U/L (14-36); BILIRUBIN,DIRECT 0.1 mg/dL (0.0-0.4); BILIRUBIN,TOTAL 0.5 mg/dL (0.2-1.3); BLOOD UREA NITROGEN 20 mg/dL (7-20); CARBON DIOXIDE 23 mmol/L (22-30); CHLORIDE 108 mmol/L (98-107); GLUCOSE 82 mg/dL (75-110); POTASSIUM 4.8 mmol/L (3.6-5.0); TOTAL PROTEIN 7.8 g/dL (6.3-8.2)
[2020-01-26] MEDS ORDERED: LORAZEPAM INJ 2 MG/1 ML VIAL IV ONE (13:32)
--- NOTE | 2020-01-26 14:51 | RADIOLOGY REPORT (SQ) ---
EXAM DESCRIPTION: MRI HEAD COMBO IMAGES COMPLETED DATE/TIME: 01/26/2020 2:33 pm REASON FOR STUDY: Left eye visual loss and normal head CT non-contra COMPARISON: None. TECHNIQUE: Multiplanar imaging includes noncontrasted T1, T2, FLAIR, diffusion with ADC map and post gadolinium contrast T1 sequences. Images stored on PACS. CONTRAST TYPE AND DOSE: 15 mL Prohance. RENAL FUNCTION: Not indicated. ACR Type II contrast agent associated with few, if any, unconfounded cases of NSF LIMITATIONS: None. FINDINGS: ANATOMY: No anomalies. Normal vascular flow voids. Pituitary fossa normal. CSF SPACES: Normal in size and contour. No hemorrhage. CEREBRUM: Sulci and gyri normal in size and contour. Normal white matter signal on FLAIR imaging. No evidence of hemorrhage, mass, or extraaxial fluid collection. No abnormal enhancement post contrast. POSTERIOR FOSSA: No signal alteration. No hemorrhage. No edema, masses, or mass effect. Internal lea tory canals, cerebellopontine angles, mastoids normal. No enhancing lesions. No abnormal enhancement post contrast. DIFFUSION IMAGING: Negative for acute or subacute infarction. ORBITS: No masses. Globes normal. PARANASAL SINUSES: No fluid levels. Mucosa normal. OTHER: No other significant finding. IMPRESSION: NORMAL MRI OF THE BRAIN WITHOUT AND WITH INTRAVENOUS GADOLINIUM CONTRAST. EVIDENCE OF ACUTE STROKE: NO. TECHNICAL DOCUMENTATION: JOB ID: [id number] 2010 [email or web address]- All Rights Reserved Reading location - IP/workstation name: [email or web address]
[2020-01-26 16:17] VITALS: BP 123/83
--- NOTE | 2020-01-26 21:57 | EKG REPORT ---
SEVERITY:- NORMAL ECG - SINUS RHYTHM : Confirmed by: Jomar Blankenship MD 26-Jan-2020 21:56:47
== END 2020-01-26 16:43 | disposition home or self-care (01) ==
LOC: ER 11:22
DX: G43.909 Migraine, unspecified, not intractable, without status migrainosus (principal); D68.61 Antiphospholipid syndrome; H54.62 Unqualified visual loss, left eye, normal vision right eye; R11.0 Nausea; J45.909 Unspecified asthma, uncomplicated; Z79.82 Long term (current) use of aspirin; Z82.3 Family history of stroke
CPT/HCPCS: 93005; 99285; 96374; 36415; 82962; 85025; 85610; 85730; 80053; 84484; 70553; 71045; 70450; 93010; J2060